=== PATIENT | female | born 2000 | race Caucasian/White ===

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

== ENCOUNTER → 2018-01-06 11:55 | Outpatient (CLI) | payer MEDICAID, SELFPAY ==
[2018-01-06 12:11] LABS: Hematocrit 40.6 % (37-47); Hemoglobin 14.2 g/dl (12.0-15.0); Mean Corpuscular Hgb 29.8 pg (27.0-32.0); Mean Corpuscular Volume 85.1 fL (81-99); Mean Platelet Vol. 13.3 fl (6.2-12.0); Platelet Count 180 K/mm3 (150-450); RBC Distribution Width CV 14.7 % (11.6-14.6); RBC Distribution Width SD 44.9 fl (35.1-43.9); Red Blood Count 4.77 M/mm3 (4.2-5.4); White Blood Count 10.8 K/mm3 (4.4-11.0)
[2018-01-06 12:20] LABS: Scan Indicated on CBC? Y/N NO
[2018-01-06 12:22] LABS: International Normalized Ratio 0.9
[2018-01-06 12:23] LABS: Partial Thromboplast Time 28.1 Seconds (24.1-36.2)
[2018-01-06 12:44] LABS: AST(SGOT) 13 U/L (15-37); Alanine Aminotransfer ALT/SGPT 12 U/L (13-56); Creatinine, Serum 0.61 mg/dL (0.55-1.02); EST Glomerular Filtration Rate 134 mL/min (>60); Est Glom Filt Rate - Afr Amer 162 mL/min (>60); Uric Acid 5.1 mg/dL (2.6-6.0)
== END ==
PROVIDERS: Visit Provider Obstetrics & Gynecology
DX: O13.9 Gestational [pregnancy-induced] hypertension without significant proteinuria, unspecified trimester (principal); Z3A.00 Weeks of gestation of pregnancy not specified
CPT/HCPCS: 36415; 82565; 84450; 84460; 84550; 85027; 85610; 85730

== ENCOUNTER → 2018-01-07 19:47 | Outpatient (CLI) | payer MEDICAID, SELFPAY ==
[2018-01-07 20:06] LABS: 24 Hour Urine Protein 493.5 mg/24HR (<150 MG/24HR); 24HR. UA Prot. Total Volume 1750 mL; Urine Protein (24 Hour) 28.2 mg/dL (<11.9)
== END ==
PROVIDERS: Visit Provider Obstetrics & Gynecology
DX: O13.9 Gestational [pregnancy-induced] hypertension without significant proteinuria, unspecified trimester (principal); Z3A.00 Weeks of gestation of pregnancy not specified
CPT/HCPCS: 84156

== ENCOUNTER 2018-01-10 06:48 | Inpatient (IN) | payer MEDICAID, SELFPAY ==
[2018-01-10 08:17] LABS: Hematocrit 38.8 % (37-47); Hemoglobin 13.2 g/dl (12.0-15.0); Mean Corpuscular Hgb 29.3 pg (27.0-32.0); Mean Corpuscular Volume 86.2 fL (81-99); Mean Platelet Vol. 13.6 fl (6.2-12.0); Platelet Count 190 K/mm3 (150-450); RBC Distribution Width CV 14.6 % (11.6-14.6); RBC Distribution Width SD 45.6 fl (35.1-43.9); Scan Indicated on CBC? Y/N NO; White Blood Count 13.3 K/mm3 (4.4-11.0)
[2018-01-10 08:25] VITALS: BMI 37.0
[2018-01-10 08:47] LABS: ALB/GLOB Ratio 0.6 RATIO (0.9-2.4); AST(SGOT) 12 U/L (15-37); Alanine Aminotransfer ALT/SGPT 12 U/L (13-56); Albumin, Serum 2.6 g/dL (3.2-5.0); Alkaline Phosphatase 130 U/L (45-117); Anion Gap 12 (5-15); BUN 11 mg/dL (7-18); BUN/Creat Ratio 19.1 RATIO (10-20); Calcium,Total 8.4 mg/dL (8.5-10.1); Chloride 107 mmol/L (98-107); Creatinine, Serum 0.58 mg/dL (0.55-1.02); EST Glomerular Filtration Rate 143 mL/min (>60); Est Glom Filt Rate - Afr Amer 173 mL/min (>60); Estimated Creatinine Clearance 129.06 ml/min; Globulin 4.2 g/dL (2.2-4.2); Glucose 126 mg/dL (74-106); Potassium 3.5 mmol/L (3.5-5.1); Protein, Total 6.8 g/dL (6.4-8.2); Sodium Level 138 mmol/L (136-145); Uric Acid 4.9 mg/dL (2.6-6.0)
[2018-01-10] MEDS: Lactated Ringers 1,000 ML 50 ML IV (08:53)
[2018-01-10] MEDS: miSOPROStol 25 MCG TABLET PO ×4 (09:08→21:35)
[2018-01-10 09:22] LABS: Bedside Glucose 109 mg/dL (70-110)
[2018-01-10 09:22] LABS: Bedside Glucose 122 mg/dL (70-110)
[2018-01-10 10:15] LABS: Bedside Glucose 90 mg/dL (70-110)
[2018-01-10] MEDS: Mag Hydrox/Al Hydrox/Simeth 30 ML UDC PO (10:29)
[2018-01-10 11:33] LABS: Protein, Urine (Random) 54.1 mg/dL (<11.9); Protein:Creat Ratio 361 mg/g CRE (0-200)
[2018-01-10 15:00] LABS: Bedside Glucose 75 mg/dL (70-110)
--- NOTE | 2018-01-10 16:54 | NURSING ---
Pt and family asking if after delivery if they would be allowed to use pre mixed formula supplied to them by [facility] d/t not wanting to expose baby to two different formulas here. This RN spoke with Dr Huynh and per MD medina with pt using the formula as long as it is pre mixed.
--- NOTE | 2018-01-10 17:45 | PCM.PN.BLA ---
Progress Note LABOR PROGRESS NOTE Relates contractions are mostly mild. She does not feel some of them. Denies headache, vision changes, shortness of breath or right upper quadrant/upper abdominal pain. AVSS GEN - NAD, AAO x 3 FHR 130, moderate variability, + accelerations, no decelerations. Patient now sitting up eating with some loss of contact. TOCO 4/10 min SVE ft/40/-3 per RN exam x 2 A/P: 17yo G1 @ 39 1/7wga with preeclampsia without severe features for IOL, Cat I FHR -s/p cytotec x 3 -No si/sx worsening preeclampsia, BPs normalized on bedrest -Will plan for bishop bulb placement once cervix 1cm dilation. Reviewed plan with patient. - and maternal statuses overall reassuring
[2018-01-10 18:46] LABS: Bedside Glucose 83 mg/dL (70-110)
--- NOTE | 2018-01-10 20:37 | PCM.PN.BLA ---
Progress Note EFM reviewed remotely. Baseline 130, moderate variability, + accelerations, no decelerations. Contractions 4/10 min. Cat I FHR.
[2018-01-10 23:16] LABS: Bedside Glucose 102 mg/dL (70-110)
[2018-01-11] VITALS (20 sets, daily range): BP systolic 116–147; BP diastolic 59–87; PULSE 67–98; RESP 14–18; TEMP 36.3–37.2; O2SAT 96–100
[2018-01-11] MEDS: miSOPROStol 25 MCG TABLET PO ×2 (01:35→07:12)
--- NOTE | 2018-01-11 01:40 | PCM.PN.BLA ---
Progress Note LABOR PROGRESS NOTE Denies headaches, vision changes or abdominal pain. AVSS GEN - NAD, AAO x 3 FHR 130, moderate variability, + accelerations, no decelerations TOCO 2/10 min SVE ft/50/-4 A/P: 17yo G1 @ 39 2/7wga, IOL for preeclampsia without severe features, Cat I FHR -Misoprostol #5 placed per vagina -Will continue induction of labor -Maternal and statuses reassuring
[2018-01-11 05:20] LABS: Bedside Glucose 85 mg/dL (70-110)
[2018-01-11 06:50] LABS: Bedside Glucose 88 mg/dL (70-110)
--- NOTE | 2018-01-11 08:03 | PCM.PN.BLA ---
Progress Note LABOR PROGRESS NOTE No complaints this morning. No issues overnight. AVSS GEN - NAD, AAO x 3 ABD - soft, NT/ND, gravid FHR 130, moderate variability, + accelerations, no decelerations TOCO - not picking up contractions SVE - per RN exam unchanged A/P: 17yo G1 @ 39 2/7wga with preeclampsia without severe features, Cat I FHR -Cytotec #6 administered at 0700h -Repeat exam at 1100h. -Maternal and statuses reassuring
[2018-01-11] MEDS: 0.9% Saline Lock 10 ML Syringe IV (09:04)
[2018-01-11 11:10] LABS: Bedside Glucose 86 mg/dL (70-110)
--- NOTE | 2018-01-11 11:42 | PCM.PN.OB ---
Subjective: Comfortable. No complaints. No headache or blurry vision. Objective: BPs 130-140/80-90s. HR normal FHR tracing Cat 1. - Physical Exam General: Alert, Oriented x3, Cooperative, No apparent distress Lungs: Clear to auscultation, Normal air movement Cardiovascular: Regular rate, Regular Rhythm Abdomen: Soft, Non Tender, Non-Distended, Gravid, Appropriate for Gestational Age Extremities: No edema Skin: No rashes Neurological: Neuro grossly intact Psych/Mental Status: Normal Affect Comment: Cervix closed with external os finger tip Weight: 209 lb Body Mass Index (BMI) 37.0 Intake and Output for Last 24 Hours 01/09/18 01/10/18 01/11/18 23:59 23:59 23:59 Output Total 250 / 250 Balance -250 / -250 POC Glucose 01/11/18 01/11/18 01/11/18 11:05 06:44 03:06 POC Glucose 86 88 85 01/10/18 01/10/18 01/10/18 23:02 18:42 14:52 POC Glucose 102 83 75 Assessment/Plan Marya was admitted for induction of labor secondary to preeclampsia without severe features. Cervix was unfavorable. She has been given 4 doses of cytotec vaginally with no appreciable change in her cervical exam. I am unsure if I could get a bishop balloon catheter past her internal os. I discussed with Marya her options which include trying pitocin, trying an attempt at bishop balloon placement or proceeding to delivery. Risks of C/S discussed including risks of bleeding, infection, damage to adjacent organs. Also discussed slightly better outcomes with vaginal delivery. Options for subsequent deliveries also discussed. She understands that recovery time will likely be longer with delivery. She would prefer delivery over continued trial of induction. Procedures explained, consents signed.
[2018-01-11] MEDS: Lactated Ringers 1,000 ML 999 ML IV (12:00)
[2018-01-11] MEDS: Clindamycin 900 MG/50 ML BAG 75 MG IV (12:31)
[2018-01-11] MEDS: Sodium Citrate/Citric Acid 30 ML UDC PO (12:31)
[2018-01-11] MEDS: Lactated Ringers 1,000 ML 100 ML IV ×2 (13:00→19:01)
[2018-01-11] MEDS: Oxytocin 30 units/NS 500 ml 30 UNITS/500 ML IV.SOLN 167 UNITS IV (13:07)
--- NOTE | 2018-01-11 13:29 | PCM.OB.CSR ---
- Problem List (1) Pre-eclampsia affecting childbirth Status: Acute (2) Failed induction of labor, delivered Status: Chronic Delivery Classification: BARBIE Final EARLINE: 01/17/18 Final EARLINE Source: US <20 weeks Gestational age: 39 Weeks and 1 Days Indications for : Failed Induction Description of Procedure: Examined after 4 doses of cytotec given vaginally with no change in cervical exam with closed internal os. Delivery of a live male weighing 7lb 8oz. Apgars 8/9. Amniotic fluid clear. Normal appearing uterus, ovaries and fallopian tubes. Amniotic Membrane Rupture Type: Artificial Amniotic Fluid Description: Clear Placenta Disposition: [facility] Drain: Heart to straight drain Fluids Replaced: 1500cc Cord Entanglement: None Nuchal Cord Compression: Without compression Cord Vessel Description: 3 Vessels Esitmated Blood Loss (ml): 600cc Gender: Male (1 minute): 8 (5 minute): 9 Delayed cord clamping: Yes Pre-op Antibiotic Given: Clindamycin 600mg IV x1 and Gentamicin 1.5mg/kg IV x1 Pt instructed on risks of surgery: Bleeding, Infection, Need for Future C-Sections, Injury to surrounding structure(s) including bowel and bladder Complications: None - Admit VTE Documentation VTE Present on Admission: No VTE Mechan Device Prophylaxis: SCD's VTE Pharm Prophylaxis ordered?: No
--- NOTE | 2018-01-11 13:33 | OP.PCM_ITS ---
- Problem List (1) Pre-eclampsia affecting childbirth Status: Acute (2) Failed induction of labor, delivered Status: Chronic Delivery Classification: BARBIE Final EARLINE: 01/17/18 Final EARLINE Source: US <20 weeks Gestational age: 39 Weeks and 1 Days Indications for : Failed Induction Description of Procedure: Examined after 4 doses of cytotec given vaginally with no change in cervical exam with closed internal os. Delivery of a live male weighing 7lb 8oz. Apgars 8/9. Amniotic fluid clear. Normal appearing uterus, ovaries and fallopian tubes. Amniotic Membrane Rupture Type: Artificial Amniotic Fluid Description: Clear Placenta Disposition: [facility] Drain: Heart to straight drain Fluids Replaced: 1500cc Cord Entanglement: None Nuchal Cord Compression: Without compression Cord Vessel Description: 3 Vessels Esitmated Blood Loss (ml): 600cc Gender: Male (1 minute): 8 (5 minute): 9 Delayed cord clamping: Yes Pre-op Antibiotic Given: Clindamycin 600mg IV x1 and Gentamicin 1.5mg/kg IV x1 Pt instructed on risks of surgery: Bleeding, Infection, Need for Future C- Sections, Injury to surrounding structure(s) including bowel and bladder Complications: None - Admit VTE Documentation VTE Present on Admission: No VTE Mechan Device Prophylaxis: SCD's VTE Pharm Prophylaxis ordered?: No
--- NOTE | 2018-01-11 13:35 | DCINST_ITS ---
Discharge Diet: No Restrictions Discharge Activity: Return to Normal Activity, May Not Drive, May not drive while taking narcotic pain medications., May Shower Return to work on:: 03/13/18 May shower in (days): 0 May resume sexual activity in: 4-6 weeks Call your doctor if your incision/area has: Continuous Slow Oozing, Sudden Increased Bleeding, Increased Pain/ Swelling, Increased Redness, Foul Smelling Discharge, Swelling at the incision site Call your doctor if you observe: Fever of 101 or Higher, Inability to urinate, Inability to have a bowel movement, Using more than one pad per hour, Shortness of breath, Chest pain, Calf discomfort, Uncontrolled pain Remove Dressing in (days):: 2 Cleanse incision/area with: Soap & Water Additional Instructions: If you experience any of the following, contact your healthcare provider. * Bleeding that soaks a pad every hour for 2 hours * Fever 100.4 or higher * Unrelieved incision or abdominal pain * Swelling, redness, discharge or bleeding from your incision or episiotomy site * Your incision begins to separate * Problems urinating (including inability to urinate or burning while urinating) . * Visual changes * Severe headache * Flu-like symptoms * Pain or redness in one of both of your breasts * Pain, warmth, tenderness or swelling in your legs, especially the calf area * Frequent nausea and vomiting * Symptoms of depression or anxiety If you experience any of the following, call 911 or go to the nearest Emergency Room. * Chest pain * Problems breathing * Seizure activity * Partial or complete paralysis of a body part, slurred speech, weakness or drooping of the face, or a sudden inability to walk or hold your balance Allergies/Adverse Reactions: Allergies amoxicillin [From Trimox] Allergy (Verified 01/10/18 08:36) Hives Medications to take at Discharge Ibuprofen [Motrin] 800 mg PO TID PRN PRN #30 tab 01/11/18 Oxycodone [Oxyir] 5 - 10 mg PO Q4H PRN PRN 7 Days #30 tab 01/11/18 The following prescriptions were given: Oxycodone [Oxyir] 5 - 10 mg PO Q4H PRN PRN 7 Days #30 tab PRN Reason: Mod-Severe Pain () Ibuprofen [Motrin] 800 mg PO TID PRN PRN #30 tab PRN Reason: pain or cramping Follow-Up: Call to make an appointment with your doctor for an incision check in 1-2 weeks. You will also need a 6 week post- follow up appointment. Please Follow Up With: Marine Robledo MD When: 1-2 weeks Primary Care Physician: Care Physician,No Primary [Primary Care Provider] - Proposed Discharge Date: 01/14/18
[2018-01-11 14:41] LABS: Bedside Glucose 85 mg/dL (70-110)
--- NOTE | 2018-01-11 18:25 | OP.PCM_ITS ---
Problem List (1) Pre-eclampsia affecting childbirth Status: Acute (2) Failed induction of labor, delivered Status: Chronic Report of Operation Date of Procedure: 01/11/18 Pre-Operative Diagnosis: preeclampsia, failed induction Post-Operative Diagnosis: same Surgery/Procedure Performed:: Primary Low Transverse Section Description of Surgical Findings:: Normal appearing uterus, ovaries, and fallopian tubes. Live male fetus in vertex presentation located very high in pelvis. Not engaged. Apgars were 8/ 9. weight 7lb8oz. amusement machine mechanic: Gunner Nicholas Type of Anesthesia:: Spinal Anesthesiologist: Luke Lopez Special Medications: none Specimen's removed: cord blood Drains: bishop Estimated Blood Loss (mL): 600cc Fluids Replaced: 1500cc Description of Procedure: Indications and risks of the planned delivery were discussed in detail. She was then taken to the OR with IV running. She was given clindamycin and gentamicin as surgical prophylaxis. Spinal anesthesia was introduced without complication. She was then prepped and draped in the supine position with a leftward tilt. A bishop catheter was placed. Once anesthesia was found to be adequate a Pfannensteil incision was made in the skin approximately 2cm above the symphysis pubis. The underlying subcutaneous tissue was dissected with sharp and blunt dissection to the level of fascia. The fascia was then incised in midline and this incision was extended bilaterally using the Palma scissors. The upper portion of the fascial defect was grasped with two Elliot clamps, elevated, and the underlying rectus muscles dissected off with sharp dissection. In a similar manner the rectus muscles were dissected off the lower fascial defect. The rectus muscles were then in the midline, the peritoneum identified and entered sharply. The peritoneal defect was enlarged using blunt retraction. A bladder blade was then placed. The vesicouterine peritoneum was then incised and extended bilaterally and a bladder flap was created digitally. The bladder blade was then replaced. A transverse incision was then made with the scalpel in the lower uterine segment exposing the membranes. This was ruptured and the uterine defect was extended bilaterally using blunt lateral and superior traction. The bladder blade was removed. The baby's head was delivered atraumatically followed by the body. Delayed cord clamping was employed. The Baby had an active cry shortly after delivery. The nose and mouth were suctioned. The cord was then clamped and cut and the baby handed to the waiting nursing staff for evaluation. The placenta was then delivered manually , the uterus exteriorized, and then cleared of all clot and membranes. The uterine defect was then repaired in two layers using #1 Vicryl suture. The posterior cul de sac and lateral gutters were cleared of all clot and fluid. The uterus was returned to the abdomen. The uterine incision was inspected and found to be hemostatic. The peritoneum was then closed with a running stitch of 2-0 Vicryl. The rectus muscles were reapproximated using interrupted sutures of 0-Vicryl. The fascia was closed with #1 Stratofix suture. The subcutaneous tissue was closed with 2-0 Vicryl. The skin was closed with a subcuticular stitch of 4-0 Monocryl. Sponge, lap, and needle counts were correct. She was taken to the recovery room in stable condition. - Complications none - Admit VTE Documentation VTE Present on Admission: No VTE Mechan Device Prophylaxis: SCD's VTE Pharm Prophylaxis ordered?: No
[2018-01-11] MEDS: Ketorolac 30 MG/ML Syringe IV (18:52)
[2018-01-12] VITALS (10 sets, daily range): BP systolic 106–145; BP diastolic 63–90; PULSE 72–103; RESP 16–20; TEMP 36.6–37.2; O2SAT 95–100
[2018-01-12] MEDS: Ketorolac 30 MG/ML Syringe IV ×5 (00:20→23:48)
[2018-01-12] MEDS: Lactated Ringers 1,000 ML 100 ML IV (04:07)
[2018-01-12 06:21] LABS: Hematocrit 31.9 % (37-47); Hemoglobin 10.9 g/dl (12.0-15.0); Mean Corp Hgb Conc 34.2 g/gl (32-36); Mean Corpuscular Hgb 29.9 pg (27.0-32.0); Mean Corpuscular Volume 87.4 fL (81-99); Mean Platelet Vol. 12.8 fl (6.2-12.0); Platelet Count 125 K/mm3 (150-450); RBC Distribution Width CV 14.5 % (11.6-14.6); RBC Distribution Width SD 45.1 fl (35.1-43.9); Red Blood Count 3.65 M/mm3 (4.2-5.4); White Blood Count 10.2 K/mm3 (4.4-11.0)
[2018-01-12 06:24] LABS: Scan Indicated on CBC? Y/N NO
--- NOTE | 2018-01-12 08:14 | PCM.PN.OB ---
Patient Problems: Active and Suspected Problems Pre-eclampsia affecting childbirth (Acute) Subjective: More comfortable this morning. Bleeding light. Bottle feeding. Objective: Afeb VSS Hgb appropriate - Physical Exam General: Alert, Oriented x3, Cooperative, No apparent distress Lungs: Clear to auscultation, Normal air movement Cardiovascular: Regular rate, Regular Rhythm Abdomen: Soft, Non Tender, Non-Distended, - - Fundus firm. Incision dressing dry. Extremities: No edema Vital Signs Temp Pulse Resp BP Pulse Ox 97.8 F 72 16 125/90 H 97 01/12/18 04:04 01/12/18 05:52 01/12/18 05:52 01/12/18 04:04 01/12/18 05:52 Oxygen Delivery Method Room Air Weight: 209 lb Body Mass Index (BMI) 37.0 Intake and Output for Last 24 Hours 01/10/18 01/11/18 01/12/18 23:59 23:59 23:59 Intake Total 3424 / 3424 1500 / 1500 Output Total 250 / 250 950 / 950 550 / 550 Balance -250 / -250 2474 / 2474 950 / 950 Laboratory Tests Past 24 Hrs 01/12/18 05:58 WBC 10.2 RBC 3.65 L Hgb 10.9 L Hct 31.9 L MCV 87.4 MCH 29.9 MCHC 34.2 RDW 14.5 RDW Differential 45.1 H Plt Count 125 L MPV 12.8 H POC Glucose 01/11/18 01/11/18 14:32 11:05 POC Glucose 85 86 Assessment/Plan Active and Suspected Problems Pre-eclampsia affecting childbirth (Acute) Doing well on POD#1. Continue routine PO care. Remove bishop catheter around noon today. PO narcotics then.
[2018-01-12] MEDS: 0.9% Saline Lock 10 ML Syringe IV ×3 (13:16→23:48)
[2018-01-12] MEDS: oxyCODONE 5 MG Tablet PO (14:02)
[2018-01-12] MEDS: Senna/Docusate Sodium 1 Tablet PO (23:48)
[2018-01-13 02:24] VITALS: BP 123/59; PULSE 80; RESP 16; TEMP 36.7; O2SAT 98
[2018-01-13] MEDS: Senna/Docusate Sodium 1 Tablet PO (07:55)
[2018-01-13] MEDS: Ibuprofen 600 MG Tablet PO (07:56)
[2018-01-13 08:10] VITALS: BP 137/76; PULSE 88; RESP 16; TEMP 36.5; O2SAT 97
--- NOTE | 2018-01-13 08:20 | PCM.PN.OB ---
Patient Problems: Active and Suspected Problems Pre-eclampsia affecting childbirth (Acute) Subjective: No complaints. Pain well controlled with PO medications. Tolerating PO well. Voiding. Bleeding light. Objective: Afeb VSS - Physical Exam General: Alert, Oriented x3, Cooperative, No apparent distress Lungs: Clear to auscultation, Normal air movement Cardiovascular: Regular rate, Regular Rhythm Abdomen: Soft, Non Tender, Non-Distended, - - Incision dressing dry. No erythema Extremities: No edema, No Calf Tenderness Skin: No rashes Neurological: Neuro grossly intact Psych/Mental Status: Normal Affect Vital Signs Temp Pulse Resp BP Pulse Ox 97.7 F L 88 16 137/76 H 97 01/13/18 08:10 01/13/18 08:10 01/13/18 08:10 01/13/18 08:10 01/13/18 08:10 Oxygen Delivery Method Room Air Weight: 209 lb Body Mass Index (BMI) 37.0 Intake and Output for Last 24 Hours 03//18 /15/18 // 23:59 23:59 23:59 Intake Total 3424 / 3424 3024 / 3024 Output Total 950 / 950 2049 / 2049 Balance 2474 / 2474 974 / 974 Assessment/Plan Active and Suspected Problems Pre-eclampsia affecting childbirth (Acute) Doing well on POD#2. Cleared for discharge home today. Home going instructions and warnings given.
--- NOTE | 2018-01-13 08:22 | PCM.DC.SUM ---
Discharge Date and Diagnosis - Problem List Patient Problems: Active and Suspected Problems Pre-eclampsia affecting childbirth (Acute) Date of Admission: 01/10/18 Date of Discharge: 01/13/18 - Primary Discharge Diagnosis Active and Suspected Problems Pre-eclampsia affecting childbirth (Acute) s/p primary C/S - Secondary Discharge Diagnosis Chronic Problems Failed induction of labor, delivered (Chronic) Hospital Course and Treatment Consultations 01/10/18 07:02 Consult: Anesthesia Routine Comment: Reason For Exam: labor Operations: - - Primary C/S Procedures: - - cytotec induction Summary of Care Provided: The patient is a 17 year old F [admitted for induction of labor secondary to preeclampsia. Cytotec induction was performed with no cervical interchange agent 24+ hours. Primary C/S was performed without complication with delivery of a live male . Postoperative course unremarkable. Discharged home on POD#2] Discharge Diet: No Restrictions Discharge Activity: Return to Normal Activity, May Not Drive, May not drive while taking narcotic pain medications., May Shower Return to work on:: 03/13/18 May shower in (days): 0 May resume sexual activity in: 4-6 weeks Call your doctor if your incision/area has: Continuous Slow Oozing, Sudden Increased Bleeding, Increased Pain/ Swelling, Increased Redness, Foul Smelling Discharge, Swelling at the incision site Call your doctor if you observe: Fever of 101 or Higher, Inability to urinate, Inability to have a bowel movement, Using more than one pad per hour, Shortness of breath, Chest pain, Calf discomfort, Uncontrolled pain Remove Dressing in (days):: 2 Cleanse incision/area with: Soap & Water Home Medications: Medications to take at Discharge Ibuprofen [Motrin] 800 mg PO TID PRN PRN #30 tab 01/11/18 Oxycodone [Oxyir] 5 - 10 mg PO Q4H PRN PRN 7 Days #30 tab 01/11/18 Following Prescrptions Were Given to Patient: Oxycodone [Oxyir] 5 - 10 mg PO Q4H PRN PRN 7 Days #30 tab PRN Reason: Mod-Severe Pain (4-10/10) Ibuprofen [Motrin] 800 mg PO TID PRN PRN #30 tab PRN Reason: pain or cramping Primary Care Physician: Care Physician,No Primary [Primary Care Provider] - Please Follow Up With: Marine Robledo MD When: 1-2 weeks Disposition: Home Minutes spent on discharge:: 15 Patient Condition:: Good Meaningful Use Info Meaningful Use Diagnoses (Choose all that apply): None applicable
--- NOTE | 2018-01-13 09:36 | NURSING ---
Wheezes clear with cough. Mother encouraged to use incentive spirometer. Mother has had cold but getting better.
[2018-01-13 12:24] VITALS: BP 148/78; PULSE 78; RESP 18; TEMP 36.6; O2SAT 98
== END 2018-01-13 13:20 | disposition home or self-care (01) | DRG 371 ==
PROVIDERS: Obstetrics & Gynecology; Admitting Provider Obstetrics & Gynecology; Visit Provider Obstetrics & Gynecology
DX: O61.0 Failed medical induction of labor (principal); O24.429 Gestational diabetes mellitus in childbirth, unspecified control; O14.94 Unspecified pre-eclampsia, complicating childbirth; O99.334 Smoking (tobacco) complicating childbirth; Z37.0 Single live birth; Z3A.39 39 weeks gestation of pregnancy
CPT/HCPCS: 59025; 59050; 80053; 82570; 82962; 84156; 84550; 85027; 86850; 86900; 99218; J7050; J7120; A4216; G0378

== ENCOUNTER → 2019-05-02 13:27 | Outpatient (CLI) | payer MEDICAID, SELFPAY ==
[2019-05-02 17:55] LABS: Chlamydia Trachomatis by PCR Negative (Negative); Neisserai gonorrhoeae by PCR Negative (Negative); Probe Check PASS; Sample Adequacy Control PASS; Specimen Processing Control PASS
== END ==
PROVIDERS: Visit Provider Obstetrics & Gynecology
DX: Z11.3 Encounter for screening for infections with a predominantly sexual mode of transmission (principal); Z32.01 Encounter for pregnancy test, result positive
CPT/HCPCS: 87491; 87591

== ENCOUNTER → 2019-05-10 14:05 | Outpatient (CLI) | payer MEDICAID, SELFPAY ==
[2019-05-10 15:51] LABS: Color, Urine Yellow (Yellow); Glucose, Dipstick Normal (Normal); Ketone-Dipstick 50 mg/dl (Negative); Leukocyte Esterase-Dipstick 100 /ul (Negative); Nitrite-Dipstick Negative (Negative); Occult Blood-Urine 10 /ul (Negative); Protein-Dipstick 15 mg/dl (Negative); Specific Gravity, Urine 1.025 (1.002-1.030); Urine Bilirubin Dipstick Negative (Negative); Urine Clarity Sl. Cloudy (Clear); Urine Urobilinogen 1 mg/dl (Normal)
[2019-05-10 15:52] LABS: Absolute Lymphocyte Count 2.16 X10^3/ul (0.83-4.51); Absolute Neutrophil Count 6.8 X10^3/uL (2.0-7.7); Basophil# 0.01 X10^3/uL; Basophil% 0.1 % (0-1); Hematocrit 39.1 % (37-47); Hemoglobin 13.4 g/dl (12.0-15.0); Lymphocyte # 2.16 X10^3/ul (4.0); Lymphocyte % 22.1 % (19-41); Mean Corp Hgb Conc 34.3 g/gl (32-36); Mean Corpuscular Hgb 29.4 pg (27.0-32.0); Mean Corpuscular Volume 85.7 fL (81-99); Monocyte# 0.68 X10^3/uL; Neutrophil # 6.81 X10^3/uL (2.7-7.7); Neutrophil % 69.6 % (47-70); Platelet Count 205 K/mm3 (150-450); RBC Distribution Width CV 13.2 % (11.6-14.6); RBC Distribution Width SD 41.6 fl (35.1-43.9); Red Blood Count 4.56 M/mm3 (4.2-5.4); White Blood Count 9.8 K/mm3 (4.4-11.0)
[2019-05-10 16:00] LABS: Amphetamine Urine VISTA NEGATIVE (<1000 ng/mL); Barbiturate Urine VISTA NEGATIVE (< 200 ng/mL); Benzodiazepine Urine VISTA NEGATIVE (< 200 ng/mL); Cocaine Urine VISTA NEGATIVE (< 300 ng/mL); Ecstacy Urine VISTA NEGATIVE (< 500 ng/mL); Methadone Urine VISTA NEGATIVE (< 300 ng/mL); PCP Urine VISTA NEGATIVE (< 25 ng/mL); THC Urine VISTA NEGATIVE (< 50 ng/mL); Vista UDS pH Range 6
[2019-05-10 16:10] LABS: Thyroid Stim Hormone (TSH) 2.21 uIU/mL (0.358-3.74)
[2019-05-10 16:11] LABS: POSITIVE COUNT NO; POSITIVE DIFFERENTIAL NO; POSITIVE MORPHOLOGY NO
[2019-05-11 02:58] LABS: Prenatal RPR NONREACTIVE (NONREACTIVE)
[2019-05-11 09:25] LABS: HIV - WCH Non-Reactive (Nonreactive); Hepatitis B Surface Antigen Non-Reactive (Nonreactive); Hepatitis C Antibody Non-Reactive (Nonreactive); Rubella IgG 420.3 IU/mL
== END ==
PROVIDERS: Visit Provider Obstetrics & Gynecology
DX: Z34.82 Encounter for supervision of other normal pregnancy, second trimester (principal)
CPT/HCPCS: 36415; 80307; 81002; 84443; 85025; 86703; 86762; 86803; 87340

== ENCOUNTER → 2019-07-20 10:39 | Outpatient (CLI) | payer MEDICAID, SELFPAY ==
[2019-07-20 14:03] LABS: Glucose Challenge Gest 1H 50g 133 mg/dL (70-140)
[2019-07-20 14:18] LABS: Hematocrit 37.9 % (37-47); Hemoglobin 12.8 g/dL (12.0-15.0); Mean Corp Hgb Conc 33.8 g/dL (32-36); Mean Corpuscular Hgb 29.9 pg (27.0-32.0); Mean Corpuscular Volume 88.6 fL (81-99); Mean Platelet Vol. 13.1 fl (6.2-12.0); Platelet Count 181 K/mm3 (150-450); RBC Distribution Width CV 13.1 % (11.6-14.6); RBC Distribution Width SD 42.5 fl (35.1-43.9); Red Blood Count 4.28 M/mm3 (4.2-5.4); White Blood Count 9.4 K/mm3 (4.4-11.0)
== END ==
PROVIDERS: Visit Provider Obstetrics & Gynecology
DX: Z34.83 Encounter for supervision of other normal pregnancy, third trimester (principal)
CPT/HCPCS: 36415; 82950; 85027

== ENCOUNTER 2019-08-20 21:00 | Outpatient (CLI) | payer MEDICAID, SELFPAY ==
[2019-08-20 21:31] VITALS: BMI 33.0
[2019-08-20] MEDS: Acetaminophen 500 MG Tablet 1000 MG PO (21:54)
[2019-08-20 22:07] LABS: Color, Urine Yellow (Yellow); Glucose, Dipstick Normal (Normal); Ketone-Dipstick 5 mg/dl (Negative); Leukocyte Esterase-Dipstick Negative /ul (Negative); Nitrite-Dipstick Negative (Negative); Occult Blood-Urine Negative /ul (Negative); Protein-Dipstick Negative (Negative); Specific Gravity, Urine 1.025 (1.002-1.030); Urine Bilirubin Dipstick Negative (Negative); Urine Clarity Clear (Clear); Urine Urobilinogen Normal (Normal)
[2019-08-20 22:47] VITALS: RESP 18
--- NOTE | 2019-09-12 18:38 | OB.TRI.NOTE ---
History of Present Illness Date of Service: 08/20/19 Was patient seen by the physician?: No Reason For Visit: RLQ Pain Date of Service: 08/20/19 Final EARLINE: 10/07/19 Final EARLINE Source: US <20 weeks Gestational age: 33 Weeks and 1 Days History of Present Illness: 33+ week intrauterine presents with discomfort in her right lower quadrant. Primarily occurs whenever she moves. Has not tried medication at home. Allergies amoxicillin [From Trimox] Allergy (Verified 08/20/19 21:30) Hives Laboratory Studies: Laboratory Tests 08/20/19 Range/Units 21:05 Urine Color Yellow (Yellow) Urine Clarity Clear (Clear) Urine pH 5.0 (5.0 - 8.0) Ur Specific [place] 1.025 (1.002-1.030) Urine Protein Negative (Negative) mg/dl Urine Glucose (UA) Normal (Normal) mg/dl Urine Ketones 5 H (Negative) mg/dl Urine Occult Blood Negative (Negative) /ul Urine Nitrite Negative (Negative) Urine Bilirubin Negative (Negative) mg/dL Urine Urobilinogen Normal (Normal) mg/dl Ur Leukocyte Esterase Negative (Negative) /ul Physical Exam Vitals: Vital Signs Resp 18 08/20/19 22:47 NST - FHR Rate Baby A NST Reactive:: Yes FHR Category:: Category I Impression/Plan 33+ week intrauterine with right lower quadrant discomfort consistent with round ligament pain. Recommended Tylenol at home to help with discomfort. Reactive nonstress test and urine analysis negative. Call with sudden gush/continuous leak of fluid, vaginal bleeding, regular or uncomfortable contractions, decreased movement [less than 10 movements in 2 hours].
== END 2019-08-20 22:47 | disposition home or self-care (01) ==
LOC: WPOUT 21:17 → WP 21:17
PROVIDERS: Referring Provider Obstetrics & Gynecology; Visit Provider Obstetrics & Gynecology
DX: O26.893 Other specified pregnancy related conditions, third trimester (principal); R10.31 Right lower quadrant pain; Z88.0 Allergy status to penicillin; Z3A.33 33 weeks gestation of pregnancy
CPT/HCPCS: 59025; 59050; 81002; 87086; 87088; 99218; G0378

== ENCOUNTER 2019-10-01 05:27 | Inpatient (IN) | payer MEDICAID, SELFPAY ==
[2019-10-01] VITALS (22 sets, daily range): BP systolic 95–141; BP diastolic 44–88; PULSE 68–97; RESP 16–20; TEMP 36.2–36.7; O2SAT 96–100; BMI 35.2
[2019-10-01] MEDS: Lactated Ringers 1,000 ML 999 ML IV (05:50)
[2019-10-01 06:23] LABS: Absolute Lymphocyte Count 3.23 X10^3/uL (0.83-4.51); Absolute Neutrophil Count 8.4 X10^3/uL (2.0-7.7); Basophil# 0.03 X10^3/uL; Basophil% 0.2 % (0-1); Eosinophil# 0.15 X10^3/uL; Eosinophils% 1.2 % (0-5); Hematocrit 37.8 % (37-47); Hemoglobin 12.9 g/dL (12.0-15.0); Lymphocyte # 3.23 X10^3/ul (4.0); Lymphocyte % 25.5 % (19-41); Mean Corp Hgb Conc 34.1 g/dL (32-36); Mean Corpuscular Hgb 28.9 pg (27.0-32.0); Mean Corpuscular Volume 84.6 fL (81-99); Mean Platelet Vol. 13.9 fl (6.2-12.0); Monocyte# 0.82 X10^3/uL; Monocyte% 6.5 % (0-10); NRBC Flagged by Analyzer 0 % (0-5); Neutrophil # 8.35 X10^3/uL (2.7-7.7); Platelet Count 177 K/mm3 (150-450); RBC Distribution Width CV 13.6 % (11.6-14.6); RBC Distribution Width SD 42.4 fl (35.1-43.9); Red Blood Count 4.47 M/mm3 (4.2-5.4); White Blood Count 12.7 K/mm3 (4.4-11.0)
[2019-10-01] MEDS: Lactated Ringers 1,000 ML 150 ML IV (06:56)
[2019-10-01] MEDS: Sodium Citrate/Citric Acid 30 ML UDC PO (06:56)
--- NOTE | 2019-10-01 07:11 | PCM.HPOB.BLA ---
History and Physical Date of Admission: 10/01/19 - Repeat C section OB HISTORY AND PHYSICAL EXAMINATION History of this : 19 yo female Ab0 with EDC 10/07/2019 by 12 weeks 1 day Ultrasound, presents to Labor and Delivery for planned repeat C section. Declined . care remarkable for - 1.) Prior C section. plans repeat c/section . pt elected FIRST C section after prolonged induction / FAILED INDUCTION, PIH, preeclampsia 2.) Short interval between pregnancies Prior delivery 01/11/18 3.) Quit smoking upon discovery of 4.) MSAFP and CF testing declined. . States her mother is a CF carrier 5.) PIH, preeclampsia with first 6.) GESTATIONAL DIABETES with her first . Pertinent Past Medical History: Breast/Ovarian/Colon Cancers - Maternal Grandmother had Breast Cancer approximately age 50-60 Infections - varicella vaccine Illnesses - none Accidents - 10-10-16 AA spine got twisted Doing ok now. History of Abnormal PAPS - No pap til 19. Hospitalizations - Childbirth and see surgery SURGICAL HISTORY: 1. 01/11/2018 Dr Maynor Marin MENSTRUAL HISTORY: LMP Known?- best guess Amount/Duration - 4-5 days, Regularity - Irregular, LMP - 12/31/18, Age Onset Menarche - 12 PAST PREGNANCIES: Total Pregnancies - 2; Full Term Pregnancies - 1; Premature - 0; Abortions, Induced - 0; Abortions, Spontaneous - 0; Ectopics - 0; Multiple Births - 0; Living Children - 1 FAMILY HISTORY: MaternalGrandparent - Carcinoma of breast; SOCIAL HISTORY: Alcohol Use - None Smoking - stopped smoking end February 2019 Diet - no particular diet Lifestyle - single Exercise - minimal Seat Belt Use - always Employer - [employer] [place] Job Description - works in [employer] Illicit Drug Use - Marijuana none since realizing Sexual Activity - single sexual partner Residence - lives w her family w FOB Place of - [place] Hours Worked - apprx 17 hrs / week Spouse-Sig Other Name - Amanda Lawrence Spouse-Sig Other Occupation - [employer] Spouse-Sig Other Phone No - [phone] Children Name(s) - Agustínzeden '18 (DS) Control - Allergies: Amoxicillin Medications: During - No Meds Review of Systems: Non-contributory PHYSICAL EXAMINATION General Appearance: 19 yo female in no acute distress Vital Signs: AF, VSS Lungs: Regular rate, rhythm Breasts: deferred Abdomen: gravid Cervix: deferred Presentation: cephalic Size: AGA Movement: present Heart: present Impression /Plan: Intrauterine . 39 wk EGA with hx of prior C section. Admitted for repeat C section. Meagan Robledo MD 10/01/19 0715
[2019-10-01] MEDS: Oxytocin 30 units/NS 500 ml 30 UNITS/500 ML IV.SOLN 167 UNITS IV (08:35)
--- NOTE | 2019-10-01 08:54 | OP.PCM_ITS ---
Delivery Classification: Scheduled Final EARLINE: 10/07/19 Final EARLINE Source: US <20 weeks Gestational age: 39 Weeks and 1 Days annealing torch operator: Nanda Jessica Type of Anesthesia:: Spinal - Florencia Dash MD Date of Procedure: 10/01/19 Pre-Operative Diagnosis: 39 1/7 wk prior C section , plans repeat C/S Declined Post-Operative Diagnosis: Same Indications for : Repeat Elective Description of Procedure: Findings: At amniotomy, clear fluid was noted. Pino viable male in vertex presentation. Apgars 9/9, Baby weight: 7# 0 oz There was a normal appearing uterus, fallopian tubes and ovaries bilaterally. There were minimal filmy adhesions between the bladder and lower uterine segment. PATH: Routine cord blood for typing collected. Narrative account: After the risks, benefits and alternatives of the procedure were reviewed with the patient, informed consent was obtained. The patient was taken to the Operating room with an IV running, and placed in a seated position on the operating table for placement of the spinal. Once the spinal had been administered, she was briefly frog-legged for Heart catheter placement, and then repositioned to dorsal supine position with leftward displacement of the uterus, and prepped and draped in the usual sterile fashion. Once the spinal was deemed adequate, a Pfannenstiel skin incision was created using the knife (through the prior skin incision scar). The incision was carried down to the rectus fascia using the knife. The fascia was nicked in the midline. The fascial incision was extended bilaterally using curved Palma scissors. The superior aspect of the fascial incision was grasped with Elliot clamps and tented up and the underlying rectus abdominal muscles were dissected free. In a similar manner, the inferior aspect of the facial incision was grasped with Elliot clamps tented up and the underlying rectus abdominal muscles were dissected free. The rectus abdominis muscles were in the midline and the peritoneum was identified and entered by blunt dissection high in the incision. The peritoneum was stretched laterally and a bladder blade was inserted. The uterine incision was then created using Metzenbaum scissors. The operators fingertips were used to extend the uterine incision by blunt dissection in a caudad- cephalad orientation . Clear fluid was noted at amniotomy. The vertex was then delivered atraumatically through the incision. The OP and nares were bulb suctioned on the abdomen. The shoulders delivered easily . The cord clamped x two and cut. And the was handed off to the nurse awaiting delivery after briefly showing him to his parents. The baby had a spontaneous, vigorous cry. The placenta was then delivered. The uterus was exteriorized and cleared of clots and debris . The uterine incision was repaired with 1 Vicryl in a running locked fashion. A second imbricating layer was then placed, using 1 Monocryl in running nonlocked fashion. Bovie cautery was used to treat any bleeding areas . Excellent hemostasis was noted. At this point the uterus was returned to the abdominal cavity. The gutters were cleared of clots and debris and the incision at the uterus was inspected. Excellent hemostasis was noted. The peritoneal edges and rectus abdominis muscles were reapproximated in the midline with vertical mattress stitches of 1 Vicryl. Excellent hemostasis was noted at the subfascial space. The fascia was closed in a running nonlocked fashion with a Stratofix. The Subcutaneous fatty tissue was Bovie cauterized as needed for hemostasis. This layer was then reapproximated in a single layer closure of running 3-0 Vicryl to eliminate space. The skin edges were closed in a Subcuticular stitch of 4-0 Monocryl. The incision was cleansed. Cavilon, Steristrips, and Mepilex dressing were applied to the skin . The patient was then transferred to the recovery room bed in stable condition after tolerating the procedure well. Sponge, lap, needle and instrument counts correct times two. Medications given preop and intraoperatively included: Gentamicin and Clindamycin given instructional coach to the operating room. The patient also received Pitocin given IV after cord clamp, and Toradol 30 mg IV times one. For a complete listing of medications given preop and intraoperatively, please see the anesthesia record. Amniotic Membrane Rupture Type: Artificial Amniotic Fluid Description: Clear Placenta Disposition: [facility] Drain: Heart to straight drain Fluids Replaced: LR Cord Entanglement: None Cord Vessel Description: 3 Vessels Esitmated Blood Loss (ml): 600 Infant Gender: Male (1 minute): 9 (5 minute): 9 Delayed cord clamping: No Antibiotic Given: Clindamycin 600mg IV x1 and Gentamicin 1.5mg/kg IV x1 Pt instructed on risks of surgery: Bleeding, Anesthesia Risks, Infection, Need for Future C-Sections - Admit VTE Documentation VTE Present on Admission: No VTE Mechan Device Prophylaxis: SCD's VTE Pharm Prophylaxis ordered?: Yes
--- NOTE | 2019-10-01 11:34 | DCINST_ITS ---
Discharge Diet: No Restrictions Discharge Activity: May not drive while taking narcotic pain medications., May Shower, May Take a Tub Bath Return to work on:: 11/26/19 May resume sexual activity in: 4-6 weeks Lifting Restrictions: 20 pounds Additional Activity Instructions:: Nothing in the vagina for 4-6 weeks. You may return to work/school in 6 weeks. Change Dressing in (Days):: 14 Remove Dressing in (days):: 14 Cleanse incision/area with: Soap & Water, Keep Dressing Clean & Dry Additional Instructions: If you experience any of the following, contact your healthcare provider. * Bleeding that soaks a pad every hour for 2 hours * Fever 100.4 or higher * Unrelieved incision or abdominal pain * Swelling, redness, discharge or bleeding from your incision or episiotomy site * Your incision begins to separate * Problems urinating (including inability to urinate or burning while urinating). * Visual changes * Severe headache * Flu-like symptoms * Pain or redness in one of both of your breasts * Pain, warmth, tenderness or swelling in your legs, especially the calf area * Frequent nausea and vomiting * Symptoms of depression or anxiety If you experience any of the following, call 911 or go to the nearest Emergency Room. * Chest pain * Problems breathing * Seizure activity * Partial or complete paralysis of a body part, slurred speech, weakness or drooping of the face, or a sudden inability to walk or hold your balance Allergies/Adverse Reactions: Allergies amoxicillin [From Trimox] Allergy (Verified 10/01/19 06:07) Hives Medications to take at Discharge Docusate Sodium [Colace] 100 mg PO BID #30 cap 10/01/19 Naproxen [Naprosyn] 250 - 500 mg PO TID PRN PRN #30 tab 10/01/19 Oxycodone [Oxyir] 5 mg PO Q6H PRN PRN 4 Days #15 tablet 10/01/19 Polyethylene Glycol 3350 [Miralax] 17 gm PO DAILY PRN #14 packet 10/01/19 The following prescriptions were given: Docusate Sodium [Colace] 100 mg PO BID #30 cap Transmission Status: Pending to [id number] Polyethylene Glycol 3350 [Miralax] 17 gm PO DAILY PRN #14 packet PRN Reason: Constipation Transmission Status: Pending to [id number] Naproxen [Naprosyn] 250 - 500 mg PO TID PRN PRN #30 tab PRN Reason: Mild-Mod Pain (1-03/09) Transmission Status[facility] Oxycodone [Oxyir] 5 mg PO Q6H PRN PRN 4 Days #15 tablet PRN Reason: Mod-Severe Pain (-08/09) Follow-Up: Call to make an appointment with your doctor for an incision check in 1-2 weeks. You will also need a 6 week post- follow up appointment. Test results from this visit will be discussed in further detail at your follow- up appointment, if applicable. Please Follow Up With: Marine Robledo MD - [phone] When: Call to make an appointment for an incision check in 2 weeks. Primary Care Physician: Care Physician,No Primary [Primary Care Provider] - Proposed Discharge Date: 10/03/19
[2019-10-01] MEDS: Lactated Ringers 1,000 ML 100 ML IV ×2 (12:24→22:34)
[2019-10-01] MEDS: Ketorolac 30 MG/ML Syringe IV ×2 (14:24→21:24)
--- NOTE | 2019-10-01 17:47 | NURSING ---
i assumed care of Marya and baby at 1600.
[2019-10-02] VITALS (10 sets, daily range): BP systolic 100–126; BP diastolic 38–71; PULSE 70–91; RESP 16–18; TEMP 36.2–36.6; O2SAT 99–100
[2019-10-02] MEDS: Ketorolac 30 MG/ML Syringe IV ×3 (02:46→14:23)
[2019-10-02 06:58] LABS: Hematocrit 31.4 % (37-47); Hemoglobin 10.6 g/dL (12.0-15.0); Mean Corp Hgb Conc 33.8 g/dL (32-36); Mean Corpuscular Hgb 29.4 pg (27.0-32.0); Mean Platelet Vol. 13.4 fl (6.2-12.0); Platelet Count 123 K/mm3 (150-450); RBC Distribution Width SD 44.1 fl (35.1-43.9); Red Blood Count 3.61 M/mm3 (4.2-5.4); White Blood Count 10.2 K/mm3 (4.4-11.0)
[2019-10-02] MEDS: Enoxaparin 40 MG/0.4 ML Syringe SC (07:06)
--- NOTE | 2019-10-02 08:33 | PCM.PN.OB ---
Subjective: POD#1 Repeat C/S Doing well. Tolerating diet. minimal pain with IV toradol and having had Duramorph. Bottle feeding. Has a small child at home. Would like to leave today if able. Objective: Lying in bed, holding sleeping . NAD - Physical Exam Vitals/I&O's: Vital Signs Temp Pulse Resp BP Pulse Ox 97.9 F 70 18 100/38 L 100 10/02/19 04:00 10/02/19 04:00 10/02/19 07:00 10/02/19 04:00 10/02/19 07:00 Oxygen Delivery Method Room Air Weight: 90.083 kg Body Mass Index (BMI) 35.2 Intake and Output for Last 24 Hours 09/30/19 10/01/19 10/02/19 23:59 23:59 23:59 Intake Total 2822.5 / 2822.5 Output Total 1200 / 1200 750 / 750 Balance 1622.5 / 1622.5 -750 / -750 General: Alert, Oriented x3, Cooperative, No apparent distress HEENT: Atraumatic, EOMI Neck: Supple Abdomen: Soft - Fundus firm NT at 2 cm inferior to umbilicus Skin: Incision - Mepliex dressing CDI. Neurological: Cranial nerves II-XII grossly intact Psych/Mental Status: Normal Affect Laboratory Results 10/02/19 06:45: WBC 10.2, RBC 3.61 L, Hgb 10.6 L, Hct 31.4 L, MCV 87.0, MCH 29.4, MCHC 33.8, RDW Std Deviation 44.1 H, RDW Coeff of Kamryn 14.0, Plt Count 123 L, MPV 13.4 H Current Medications Acetaminophen (Tylenol) 1,000 mg PO Q8H PRN PRN Reason: Pain Score 1-3/10 Bisacodyl (Dulcolax) 10 mg RECTAL UD PRN PRN Reason: If no BM Diphenhydramine HCl (Benadryl) 25 mg PO Q6H PRN PRN PRN Reason: ITCHING Stop: 10/02/19 18:59 Enoxaparin Sodium (Lovenox) 40 mg SC DAILY@0600 ALHAJI Last Admin: 10/02/19 07:06 Dose: 40 mg Documented by: Hydrocortisone (Hytone) 1 applic TOPICAL TID PRN PRN; Protocol PRN Reason: Discomfort Lactated Ringer's () 1,000 mls @ 100 mls/hr IV .Q10H [facility] Last Admin: 10/02/19 06:58 Dose: Not Given Documented by: Naloxone HCl 4 mg/ Dextrose 504 mls @ 0 mls/hr IV .Q0M PRN; Protocol PRN Reason: Respiratory depression Ketorolac Tromethamine (Toradol) 30 mg IV Q6H [facility] Stop: 10/03/19 08:31 Last Admin: 10/02/19 02:46 Dose: 30 mg Documented by: Methylergonovine Maleate (Methergine) 0.2 mg IM X1 PRN PRN Reason: Uterine Atony Naloxone HCl (Narcan) 0.02 mg IV Q1M PRN PRN Reason: RR <10 and pt unresponsive Naproxen (Naprosyn) 250 - 500 mg PO Q8H PRN PRN PRN Reason: Pain Score 1-3/10 Ondansetron HCl (Zofran) 4 mg IV Q4H PRN PRN PRN Reason: Nausea Oxycodone HCl (Oxyir) 5 - 10 mg PO Q4H PRN PRN PRN Reason: Pain Score 4-10/10 Prochlorperazine Edisylate (Compazine Iv) 10 mg IV Q6H PRN PRN PRN Reason: NAUSEA Senna/Docusate Sodium (Senokot-S, Elizabeth-Colace) 0 tablet PO DAILY PRN PRN Reason: Constipation Simethicone (Mylicon) 80 mg PO PCHS PRN PRN Reason: Indigestion/stomach pain Last Admin: 10/02/19 02:51 Dose: 80 mg Documented by: Sodium Chloride () 5 - 15 ml IV UD PRN PRN Reason: SALINE FLUSH Zolpidem Tartrate (Ambien (Generic)) 5 mg ORAL QHS PRN PRN PRN Reason: Insomnia Medical Necessity - Tobacco Use Smoking Status: Light Smoker (<10/day) Assessment/Plan All Active Problems Pre-eclampsia affecting childbirth (Acute) POD#1 Repeat C/S 39 1/7 wk Stable postop. AVSS and benign exam. Inc diet and activity as tolerated. S/L or D/C IV Would like to go home today. May remove IV Stop all IV meds, including Toradol q 6 hrs. Heart to be removed for voiding trial Continue Tylenol and Aleve prn for pain with OxyIR also. Abdominal binder prn. If elects to go home today, and all criteria met, RTO in 1-2 wk for postop incision check. Reviewed activity restrictions.
[2019-10-02] MEDS: Senna/Docusate Sodium 1 Tablet PO (08:46)
[2019-10-02] MEDS: 0.9% Saline Lock 10 ML Syringe IV (14:24)
== END 2019-10-02 18:15 | disposition home or self-care (01) | DRG 540 ==
PROVIDERS: Admitting Provider Obstetrics & Gynecology; Referring Provider Obstetrics & Gynecology; Visit Provider Obstetrics & Gynecology
PROC: 10D00Z1 Extraction of Products of Conception, Low, Open Approach (ICD-10-PCS; CPT 59514; principal; 2019-10-01 07:15)
DX: O65.5 Obstructed labor due to abnormality of maternal pelvic organs (principal); O34.211 Maternal care for low transverse scar from previous cesarean delivery; Z3A.39 39 weeks gestation of pregnancy; Z37.0 Single live birth; Z80.3 Family history of malignant neoplasm of breast; F17.210 Nicotine dependence, cigarettes, uncomplicated; O99.334 Smoking (tobacco) complicating childbirth
CPT/HCPCS: 85025; 85027; 86850; 86900; 86901; 99218; J7120; A4216; G0378; J2405

== ENCOUNTER 2021-12-02 13:00 | Inpatient (IN) | payer MEDICAID, SELFPAY ==
[2021-12-02] VITALS (14 sets, daily range): BP systolic 112–160; BP diastolic 55–121; PULSE 65–75; RESP 14–18; TEMP 36–36.9; O2SAT 95–99; BMI 37.8
--- NOTE | 2021-12-02 | FALS_PTH ---
PATIENT: JIMMY HOBSON LOC: [facility] U#:[id number] AGE/SX: 21/F ROOM: WP007 RE12/02/[address]: Dr. Sabrina Tran MD : 2000 BED: 1 DIS: 12/04/2021 SPEC #: [id number] RECD: 12/02/21 17:45 STATUS: RAY RELizzette #: [id number] JERICHO: 12/02/21 00:[address]: Sabrina Tran DEPT: SURGICAL PATHOLOGY RECD BY: Brendan Nava ENTERED: 12/03/21 08:35 SP TYPE: FALL TUBES OTHR DR: No Primary Care Phys Tissues: Fallopian tube Procedures: Surgery Specimen Level II HEADER OPERATION: Tubal ligation PRE-OP DIAGNOSIS: Sterilization TISSUE SUBMITTED: Fallopian tubes MICROSCOPIC DIAGNOSIS Right fallopian tube, salpingectomy: Complete segment of fallopian tube with no pathologic change. Left fallopian tube, salpingectomy: Complete segment of fallopian tube with no pathologic change. CIPRIANO:jorge alberto 12/07/2021 MICROSCOPIC DESCRIPTION Slides are reviewed. GROSS DESCRIPTION Received in fixative is one container labeled with the patient's name and designated bilateral fallopian tubes, right with suture. The specimen consists of two fallopian tubes with an average length of 6.5 cm and has an average diameter of 0.8 cm. Both fallopian tubes have normal fimbriated ends. No mass lesions are identified. Cardiac Cath Lab Manager sections are submitted in two cassettes as follows: 1 - right fallopian tube, 2 - left fallopian tube. / AM:[facility] 12/03/21 TC:4 CPT: 06749 x2
[2021-12-02] MEDS: Lactated Ringers 1,000 ML 999 ML IV (14:00)
[2021-12-02] MEDS: Acetaminophen 500 MG Tablet 1000 MG PO ×2 (14:18→20:29)
[2021-12-02] MEDS: Lactated Ringers 1,000 ML 150 ML IV (15:01)
[2021-12-02 15:05] LABS: Bedside Glucose 75 mg/dL (70-110)
[2021-12-02 15:22] LABS: Absolute Lymphocyte Count 2.18 X10^3/uL (0.83-4.51); Absolute Neutrophil Count 8.8 X10^3/uL (2.0-7.7); Basophil# 0.04 X10^3/uL; Basophil% 0.3 % (0-1); Eosinophil# 0.04 X10^3/uL; Eosinophils% 0.3 % (0-5); Hematocrit 35.9 % (37-47); Lymphocyte # 2.18 X10^3/ul (0.83-4.51); Lymphocyte % 18.7 % (19-41); Mean Corp Hgb Conc 33.4 g/dL (32-36); Mean Corpuscular Hgb 27.8 pg (27.0-32.0); Mean Corpuscular Volume 83.1 fL (81-99); Monocyte# 0.59 X10^3/uL; Monocyte% 5.1 % (0-10); NRBC Flagged by Analyzer 0 % (0-5); Neutrophil # 8.77 X10^3/uL (2.7-7.7); Neutrophil % 75.3 % (47-70); Platelet Count 166 K/mm3 (150-450); RBC Distribution Width CV 13.9 % (11.6-14.6); RBC Distribution Width SD 40.6 fl (35.1-43.9); Red Blood Count 4.32 M/mm3 (4.2-5.4); White Blood Count 11.7 K/mm3 (4.4-11.0)
[2021-12-02] MEDS: Sodium Citrate/Citric Acid 30 ML UDC PO (15:34)
[2021-12-02] MEDS: Cefazolin 2 GM in 0.9% Normal Saline 100 ML IV (15:39)
--- NOTE | 2021-12-02 16:33 | EX.PCM.OBRPT ---
Assessment & Plan (1) 39 weeks gestation of : (2) Previous delivery affecting : (3) Sterilization: Maternal Data Information Final EARLINE: 12/09/21 Gestational age: 39 0/7 Details Operative Information Date of Procedure: 12/02/21 Pre-Operative Diagnosis: 39 weeks, previous cs, desires sterilization Post-Operative Diagnosis: same Classification: Scheduled Procedure Type: low transverse woodyard operator #1: Gunner Nicholas woodyard operator #2: Mckenna Type of Anesthesia: Spinal Special Medications: duramorph Drain: Heart to straight drain Estimated Blood Loss: 800 Fluids Replaced: 800 Procedure Start Time: 16:00 Procedure Stop Time: 16:35 Time of Delivery: 16:02 Findings Description of Procedure: The patient was taken to the operating room. She was prepped and draped in the dorsal supine position with a leftward tilt. A Pfannenstiel skin incision was made approximately 2 cm above the symphysis pubis and carried through to underlying layer fascia with the scalpel. The fascia was incised incised in the midline and extended laterally with the Palma scissors. The fascia was dissected off the rectus muscles with blunt and sharp dissection. The rectus muscles were in the midline and the peritoneum was entered bluntly. The peritoneal incision was stretched and the bladder blade was placed. The uterine incision was made in a low transverse fashion with the scalpel and extended superiorly and inferiorly with blunt dissection. The amniotic membranes were ruptured bluntly and clear amniotic fluid returned. The 's head was brought to the incision in the flexed position and delivered without difficulty. The remainder of the infant was delivered with gentle traction and fundal pressure in the standard fashion. The mouth and nares were bulb suctioned. The cord was clamped and cut as the was stimulated. Cord clamping was delayed. The was handed off to the waiting nursing staff. The placenta was delivered with fundal massage and gentle traction in the standard fashion. The uterus was exteriorized and cleared of all clots and debris. The cervix was dilated with a ring forcep. The uterine incision was closed with #1 Vicryl in a running locked fashion. The incision was examined and was found to be hemostatic. The uterus was placed back into the peritoneal cavity and hemostasis was again confirmed. The left fallopian tube was identified and followed out to the fimbriated end. The antimesenteric portion was clamped, sealed and transected with the LigaSure device. The entire tube was amputated and sent to pathology. Hemostasis was noted. The same procedure was performed on the contralateral side. The rectus muscles were examined and any bleeding was Bovie cauterized. The parietal peritoneum and rectus muscles were closed en bloc with an 0 Vicryl running suture. The surgical teams outer gloves were then changed. The rectus fascia was examined and any bleeding was Bovie cauterized and the rectus fascia was closed with 1 Vicryl suture in a running standard fashion. The subcutaneous tissue was examining and any bleeding was Bovie cauterized. The subcutaneous tissue was reapproximated with 3-0 Vicryl suture. The skin was closed in a subcuticular fashion by the [employer] with me present in the labor and delivery suite. I performed the remainder of the procedure with assistance. All sponge, lap, and needle counts were correct. The patient was taken to her room for recovery in a stable condition. Presentation: Positive for Vertex Amniotic Membrane Rupture Type: Artificial Amniotic Fluid Description: Clear Placental Delivery Description: Expressed Placenta Disposition: [facility] Specimen(s) Sent to Pathology: Bilateral fallopian tube Cord Vessel Description: 3 Vessels Cord Entanglement: None A Gender: Female (Ambikaley, 7lb 15 oz) (1 minute): 9 (5 minute): 9 Delayed Cord Clamping: Yes Complications Complications: none
--- NOTE | 2021-12-02 16:37 | PCM.HP.OB ---
HPI - General General Date of Admission: 12/02/21 HPI Narrative JIMMY HOBSON, is a 21-year-old female at 39 weeks gestation who had a previous section x2 desires repeat. She denies any vaginal bleeding or leaking of fluid. She is had some irregular contractions. has been complicated to date by diet-controlled gestational diabetes. Maternal Data Information Final EARLINE: 12/09/21 Gestational age: 39 PFSH PFS Medical History (Updated 12/02/21 @ 16:[address] Sabrina Tran MD) Asthma Family history of hearing loss at age younger than 7 years Gestational diabetes Pre-eclampsia Home Medications aspirin [Baby Aspirin] 1 tab PO DAILY 12/02/21 [History Last Taken 11/30/21] [id number] [Prenatabs FA] 1 tab PO DAILY 12/02/21 [History Last Taken Unknown] Allergy/AdvReac Type Severity Reaction Status Date / Time amoxicillin [From Trimox] Allergy Hives Verified 10/01/19 06:07 Surgical History (Updated 12/02/21 @ 16:[address] Sabrina Tran MD) Previous section Social History Smoking Status: Former smoker History Elective abortions Hx Para 2 Spontaneous abortions Hx # Term Pregnancies Ectopic pregnancies Hx # Pregnancies Multiple births # of living children ROS Constitutional Constitutional: Denies fatigue, fever(s) or malaise Eyes Eyes: Denies change in vision ENT HEENT: Denies dizziness or headache(s) Cardiovascular Cardiovascular: Denies chest pain, dyspnea or lightheadedness Respiratory/Chest Respiratory/Chest: Denies cough or dyspnea Gastrointestinal Gastrointestinal: Denies change in bowel habits Genitourinary Genitourinary: Denies burning urination or genital lesions Integumentary Integumentary: Denies rash Neurologic Neurologic: Denies confusion, dizziness, headache(s), numbness or weakness Vital Signs Vital Signs Vital Signs: 12/02/21 13:45 Temperature 98.0 F Temperature Source Temporal Pulse Rate 72 Respiratory Rate 18 Blood Pressure 131/68 H Blood Pressure Mean 89 Blood Pressure Source Monitor Blood Pressure Position Semi-Fowlers Blood Pressure Location Right Arm Pulse Ox 95 Oxygen Delivery Method Room Air Weight Weight: 96.8 kg Body Mass Index (BMI) 37.8 Physical Exam Const alert and no apparent distress General Appearance: cooperative HEENT normocephalic Resp normal respiratory effort Cardio regular rate GI soft to palpation GI Narrative: gravid, nontender, appropriate for gestational age Extremity no calf tenderness General Extremity: edema Skin no wounds Rashes: No rashes noted Psych activity/motor behavior normal Labs Labs Labs: Blood Type O POSITIVE Antibody Screen NEGATIVE Hct 35.9 % (37-47) L Hgb 12.0 g/dL (12.0-15.0) Rubella IgG Antibody 420.3 IU/mL Hep Bs Antigen Non-Reactive (Nonreactive) HIV 1&2 Antibody Non-Reactive (Nonreactive) C.trachomatis DNA (PCR) Negative (Negative) Glucose 1 Hr 50 gm 133 mg/dL (70-140) Group B Strep DNA Negative (Negative) Rhogam given: No Assessment & Plan (1) Sterilization: (2) Previous delivery affecting : PLAN: Risk benefits and alternatives to repeat section at 39 weeks were discussed with the patient, questions were answered to her satisfaction she desires to proceed. Patient had a positive Covid test last week however, she had a positive test on November 02. This is considered persistently positive PCR test. Her symptoms have resolved. She does not have active Covid. Patient desires sterilization. She understands is permanent, irreversible risk of failure and regret. (3) 39 weeks gestation of :
[2021-12-02] MEDS: Oxytocin 30 units/NS 500 ml 30 UNITS/500 ML IV.SOLN 167 UNITS IV (16:52)
[2021-12-02] MEDS: Ketorolac 30 MG/ML Syringe IV ×2 (17:22→23:08)
[2021-12-02 17:45] LABS: Pathology Specimen OB SEE PATHOLOGY REPORT
[2021-12-02 18:15] LABS: Bedside Glucose 92 mg/dL (70-110)
[2021-12-02] MEDS: Lactated Ringers 1,000 ML 100 ML IV (20:29)
[2021-12-03 01:14] VITALS: BP 133/62; PULSE 77; RESP 18; TEMP 36.1; O2SAT 96
[2021-12-03] MEDS: Acetaminophen 500 MG Tablet 1000 MG PO ×4 (03:26→20:58)
[2021-12-03 03:30] VITALS: BP 110/56; PULSE 73; RESP 16; TEMP 36.1; O2SAT 98
[2021-12-03] MEDS: Enoxaparin 40 MG/0.4 ML Syringe SC (04:48)
[2021-12-03] MEDS: Ketorolac 30 MG/ML Syringe IV ×2 (05:14→11:18)
[2021-12-03] MEDS: 0.9% Saline Lock 10 ML Syringe IV ×2 (05:14→11:18)
[2021-12-03 06:19] LABS: Hematocrit 29.5 % (37-47); Mean Corp Hgb Conc 33.9 g/dL (32-36); Mean Corpuscular Hgb 28.4 pg (27.0-32.0); Mean Corpuscular Volume 83.8 fL (81-99); Platelet Count 151 K/mm3 (150-450); RBC Distribution Width CV 13.9 % (11.6-14.6); RBC Distribution Width SD 41.6 fl (35.1-43.9); Red Blood Count 3.52 M/mm3 (4.2-5.4); White Blood Count 17.4 K/mm3 (4.4-11.0)
[2021-12-03 09:15] VITALS: BP 120/63; PULSE 71; RESP 16; TEMP 36.1
[2021-12-03] MEDS: Senna/Docusate Sodium 1 Tablet PO (09:27)
[2021-12-03 09:31] LABS: Bedside Glucose 62 mg/dL (70-110)
--- NOTE | 2021-12-03 09:57 | PCM.PN.OB ---
Subjective Subjective Pain controlled. Denies complaints. Objective Data Objective Data Vital Signs: Vital Signs Temp Pulse Resp BP Pulse Ox 96.9 F L 71 16 120/63 98 12/03/21 09:15 12/03/21 09:15 12/03/21 09:15 12/03/21 09:15 12/03/21 03:30 Oxygen Delivery Method Room Air Weight: 213 lb 6.519 oz Body Mass Index (BMI) 37.8 Intake & Output: Intake and Output for Last 24 Hours 12/01/21 12/02/21 12/03/21 23:59 23:59 23:59 Intake Total 2205 / 2205 701.67 / 701.67 Output Total 350 / 350 250 / 250 Balance 1855 / 1855 451.67 / 451.67 Lab / Micro Data Result Diagrams: 12/03/21 06:08 Labs: Laboratory Results - last 24 hr 12/02/21 14:00: WBC 11.7 H, RBC 4.32, Hgb 12.0, Hct 35.9 L, MCV 83.1, MCH 27.8, MCHC 33.4, RDW Std Deviation 40.6, RDW Coeff of Kamryn 13.9, Plt Count 166, Immature Gran % (Auto) 0.300, Neut % (Auto) 75.3 H, Lymph % (Auto) 18.7 L, [facility] % (Auto) 5.1, Eos % (Auto) 0.3, Baso % (Auto) 0.3, Absolute Neuts (auto) 8.8 H, Absolute Lymphs (auto) 2.18, Nucleated RBC % 0 12/02/21 14:00: Blood Type O POSITIVE, Antibody Screen NEGATIVE 12/02/21 14:25: POC Glucose 75 12/02/21 18:05: POC Glucose 92 12/03/21 06:08: WBC 17.4 H, RBC 3.52 L, Hgb 10.0 L, Hct 29.5 L, MCV 83.8, MCH 28.4, MCHC 33.9, RDW Std Deviation 41.6, RDW Coeff of Kamryn 13.9, Plt Count 151, MPV TNP 12/03/21 09:22: POC Glucose 62 L Physical Exam Const alert, oriented x3 and no apparent distress HEENT normocephalic GI soft to palpation, non-tender and non-distended GI Narrative: fundus firm, mid & below umbilicus Incision - bandage c/d/i Extremity normal to inspection and no calf tenderness Assessment & Plan (1) Previous delivery affecting : COMMENT: POD#1 PLAN: Heme - HDS, cbc reviewed ID - AF, no signs infection GI/ - no issues GDM - FBS normal Routine care
[2021-12-03 12:36] VITALS: BP 111/42; PULSE 61; RESP 18; TEMP 36.1; O2SAT 98
[2021-12-03 16:00] VITALS: BP 129/81; PULSE 74; RESP 16; TEMP 36.1
[2021-12-03] MEDS: Ibuprofen 600 MG Tablet PO (17:34)
[2021-12-03 20:00] VITALS: BP 137/73; PULSE 71; RESP 18; TEMP 36.3; O2SAT 98
[2021-12-04] MEDS: Ibuprofen 600 MG Tablet PO ×3 (00:15→12:28)
[2021-12-04] MEDS: Acetaminophen 500 MG Tablet 1000 MG PO ×2 (03:08→10:25)
[2021-12-04 03:10] VITALS: BP 139/78; PULSE 71; RESP 18; TEMP 36.1
--- NOTE | 2021-12-04 08:39 | PCM.PROGNOTE ---
Subjective Subjective Patient seen at bedside, doing well. Patient reports good pain control. Mild lochia. Patient denies any nausea or vomiting. Ambulating without difficulty. Tolerating regular diet, positive BM.voiding w/o difficulty. Bottle feeding. Objective Data Objective Data Vital Signs: Vital Signs Temp Pulse Resp BP Pulse Ox 97.0 F L 71 18 139/78 H 98 12/04/21 03:10 12/04/21 03:10 12/04/21 03:10 12/04/21 03:10 12/03/21 20:00 Oxygen Delivery Method Room Air Weight: 96.8 kg Body Mass Index (BMI) 37.8 Intake & Output: Intake and Output for Last 24 Hours 12/02/21 12/03/21 12/04/21 23:59 23:59 23:59 Intake Total 2205 / 2205 701.67 / 701.67 Output Total 350 / 350 250 / 250 Balance 1855 / 1855 451.67 / 451.67 Lab / Micro Data Result Diagrams: 12/03/21 06:08 Labs: Laboratory Results - last 24 hr 12/03/21 09:22: POC Glucose 62 L Physical Exam Narrative dressing dry and intact. Const alert and oriented x3 General Appearance: cooperative HEENT normocephalic Neck General: normal visual inspection GI soft to palpation and non-distended GI Narrative: Fundus firm Extremity normal to inspection and no calf tenderness Skin no rashes or lesions noted Neuro oriented x3 and CN's II-XII intact bilaterally Psych mental status grossly normal Assessment & Plan Assessment/Plan (1) Sterilization: (2) Delivery by section: (3) Gestational diabetes: QUALIFIERS: Gestational diabetes mellitus control: diet-controlled Trimester: third trimester Qualified Code(s): O24.410 - Gestational diabetes mellitus in , diet controlled PLAN: POD# 2 , Doing well Routine care pain mgmt monitor VS ambulation possible dc home depending on baby status
--- NOTE | 2021-12-04 08:43 | PCM.DC ---
Discharge Instructions Diet Discharge Diet: No restrictions Activity May resume sexual activity in: 6-8 weeks Lifting Restrictions: 25 Dressing / Incision Call your doctor if your incision/area has: Continuous Slow Oozing, Sudden Increased Bleeding, Increased Pain/ Swelling, Increased Redness, Foul Smelling Discharge and Swelling at the incision site Call your doctor if you observe: Fever of 101 or Higher, Inability to urinate, Using more than 1 pad per hour and Uncontrolled pain Additional Dressing/Incision Instructions:: remove dressing at 7 days post op- if it becomes saturated prior to that time you may remove it. Let soap and water run over incision sites and dab dry. keep incision clean and dry. Follow Up Care Please Follow Up With: Kanchan Blankenship MD When: 1-2 weeks post of incision check and again at 6 weeks post . [phone] Test Results: Test results from this visit will be discussed in further detail at your follow-up appointment, if applicable. Discharge Plan Admission Admit Date/Time: 12/02/21 13:00 Attending Provider: Sabrina Tran Primary Care Provider: Care Physician,Sabra Primary Discharge Orders/Prescriptions Prescriptions: New acetaminophen 500 mg Tablet 1,000 mg PO Q6H Qty: 0 RF: 0 ibuprofen 600 mg Tablet 600 mg PO Q6H Qty: 0 RF: 0 simethicone [Mi-Acid Gas Relief(simethicon)] 80 mg Tablet,Chewable 80 mg PO PCHS PRN (Reason: Indigestion/stomach pain) Qty: 0 RF: 0 Continued Prenatabs FA 29-1 mg Tablet 1 tab PO DAILY RF: 0 Discontinued aspirin [Baby Aspirin] 81 mg Tablet,Chewable 1 tab PO DAILY RF: 0 Referrals / Follow Up: Care Physician,No Primary [Primary Care Provider] - Disposition Disposition (needs filled in before D/C Order can be placed): Home, Self Care
--- NOTE | 2021-12-04 08:44 | PCM.DC.BLA ---
Discharge Summary Date of Admission: 12/02/21 Date of Discharge: 12/04/21 Summary: Patient was admitted for repeat elective section 39 weeks gestation and for sterilization. h/o GDMA1. Patient underwent a low transverse repeat section by Dr. Sabrina Tran without complication as well as a bilateral salpingectomy. Patient did well postoperatively and and plan that she will be discharged home on postoperative day #2 so long as is able to be discharged. Meaningful Use Info Meaningful Use Diagnoses (Choose all that apply): None applicable Discharge Plan Admission Admit Date/Time: 12/02/21 13:00 Attending Provider: Sabrina Tran Primary Care Provider: Care Physician,Sabra Primary Discharge Orders/Prescriptions Prescriptions: New acetaminophen 500 mg Tablet 1,000 mg PO Q6H Qty: 0 RF: 0 ibuprofen 600 mg Tablet 600 mg PO Q6H Qty: 0 RF: 0 simethicone [Mi-Acid Gas Relief(simethicon)] 80 mg Tablet,Chewable 80 mg PO PCHS PRN (Reason: Indigestion/stomach pain) Qty: 0 RF: 0 Continued Prenatabs FA 29-1 mg Tablet 1 tab PO DAILY RF: 0 Discontinued aspirin [Baby Aspirin] 81 mg Tablet,Chewable 1 tab PO DAILY RF: 0 Referrals / Follow Up: Care Physician,No Primary [Primary Care Provider] - Disposition Disposition (needs filled in before D/C Order can be placed): Home, Self Care
[2021-12-04 10:14] VITALS: BP 132/54; PULSE 90; RESP 18; TEMP 36.1; O2SAT 96
[2021-12-04] MEDS: Senna/Docusate Sodium 1 Tablet PO (10:25)
== END 2021-12-04 13:35 | disposition home or self-care (01) | DRG 539 ==
PROVIDERS: Admitting Provider Obstetrics & Gynecology; Visit Provider Obstetrics & Gynecology
DX: O34.211 Maternal care for low transverse scar from previous cesarean delivery (principal); O24.420 Gestational diabetes mellitus in childbirth, diet controlled; Z30.2 Encounter for sterilization; Z86.16 Personal history of COVID-19; Z87.891 Personal history of nicotine dependence; Z37.0 Single live birth; Z79.82 Long term (current) use of aspirin; Z3A.39 39 weeks gestation of pregnancy
CPT/HCPCS: 59050; 82962; 85025; 85027; 86850; 86900; 86901; 88302; 99218; 99406; J7120; A4216; G0378; J2405

== ENCOUNTER 2022-05-16 03:10 | Emergency (ER) | payer MEDICAID, SELFPAY ==
[2022-05-16 03:11] VITALS: BP 145/85; PULSE 101; RESP 24; TEMP 37; O2SAT 96; BMI 40.6
[2022-05-16 03:18] VITALS: O2SAT 100
--- NOTE | 2022-05-16 03:45 | RAD_ITS ---
STUDY: X-RAY - SOFT TISSUE NECK REASON FOR EXAM: Female, 21 years old. Sensation fullness in neck TECHNIQUE: AP and lateral view(s) of the neck were obtained. COMPARISON: None. FINDINGS: Normal visualized nasopharynx, oropharynx, hypopharynx. Normal epiglottis. Normal visualized subglottic tracheal air column. Normal prevertebral soft tissue structures. Normal visualized osseous structures. The soft tissue structures are unremarkable. RAD/Neck for Soft Tissue IMPRESSION: No abnormal finding in the soft tissues of the neck. No finding to explain sensational fullness. Electronically Signed: Leon Sarabia MD at 4:03 EDT ,
--- NOTE | 2022-05-16 03:56 | EDS_ITS ---
HPI History of Present Illness Chief Complaint: Shortness of Breath Informant: patient Narrative Narrative: Patient is a 21-year-old female with no significant past medical history presenting with throat discomfort and sensation of shortness of breath. Patient states that when she laid down last night (05/14) she felt like she had a hard time breathing. She states there is like a fullness and discomfort in her upper throat. In addition she feels like her mouth has been dry. Feels that her voice is more raspy than normal. She again tried to lay down tonight and had the same sensation. She came to the emergency room for further evaluation. She denies any chest pain. She does not feel she is having a difficult time breathing but just that her throat is swollen and this is affecting her breathing. Denies any upper respiratory symptoms. Denies any fever or chills. Never had a sensation like this before. No GI or symptoms. No other complaints at this time. [facility] Medical History Asthma Family history of hearing loss at age younger than 7 years Gestational diabetes Pre-eclampsia Allergy/AdvReac Type Severity Reaction Status Date / Time amoxicillin [From Trimox] Allergy Hives Verified 10/01/19 06:07 Family History Mother Cystic fibrosis carrier Grandmother Breast cancer Surgical History Previous section Social History Smoking Status: Current every day smoker tobacco type: e-cigarettes ROS ROS ED Constitutional Constitutional ED: Denies chills or fever(s) Eyes Eyes: Denies change in vision ENT ENT ED: Reports sore throat; Denies ear pain or rhinorrhea Cardiovascular Cardiovascular: Reports orthopnea; Denies chest pain or palpitations Respiratory/Chest Respiratory/Chest: Reports dyspnea and orthopnea; Denies cough or dyspnea on exertion Gastrointestinal Gastrointestinal: Denies abdominal pain, nausea or vomiting Genitourinary Genitourinary ED: Denies dysuria Musculoskeletal Musculoskeletal: Denies arthralgias Integumentary Denies rash Neurologic Neurologic: Denies headache(s) or weakness Psychiatric Psychiatric: Denies anxiety EXAM Physical Exam Const Vital Signs: 05/16/22 03:11 05/16/22 03:18 Temperature 98.6 F Temperature Source Oral Pulse Rate 101 H Respiratory Rate 24 H Respiratory Effort Normal Non-Labored Respiratory Depth Normal Respiratory Pattern Normal Blood Pressure 145/85 H Blood Pressure Mean 105 Pulse Ox 96 Oxygen Delivery Method Room Air Room Air Positive well nourished, well developed and obese General Appearance ED: well developed and NAD Nutritional Appearance: obese HEENT Reports moist mucous membranes HEENT Narrative: Normal oropharynx. Midline uvula. Normal tonsils. No erythema or exudate appreciated. Sublingual mucosa is soft. Normal phonation. No hot potato voice. Eyes PERRL and EOMs intact bilaterally Neck no lymphadenopathy and supple Neck Narrative: Normal range of motion. No meningeal signs. Chest Wall inspection of chest normal and palpation of chest normal Resp normal respiratory effort and clear to auscultation bilaterally Resp Narrative: No stridor. Auscultation: Negative for rales or rhonchi Cardio regular rate, regular rhythm and no murmurs GI normal to inspection, nondistended, normoactive bowel sounds and non-tender Extremity normal to inspection Neuro oriented x3 Motor Exam: Negative for general weakness Skin no rashes or lesions noted MDM MDM MDM Narrative Medical decision making narrative: Patient is evaluated for sensation of fullness in her throat that is causing her to feel short of breath. On arrival patient is tachycardic and mildly tachypneic however this improves with just rest in the emergency room. She is nonhypoxic. Clinically she has a normal exam. She is clear breath sounds no stridor. No oral pharyngeal edema is appreciated on physical exam. She has no erythema or exudates of the tonsils. Did obtain an x-ray soft tissue neck which did not show any findings consistent with epiglottitis, retropharyngeal abscess or other cause of the symptoms. As patient is well-appearing with no voice changes that I can appreciate, and a normal physical exam I have a lower suspicion for subtle peritonsillar abscess. She does not have any infectious symptoms. Patient given a dose of Decadron in case there is some pharyngeal swelling and have not able to visualize or appreciate on x-ray. She is offered a CT soft tissue neck however declines. She is given strict return precautions. On exit counseling she does mention that she is had some postnasal drip. Is possible that this is causing this throat sensation. She is counseled to take [id number] decongestants in addition to the steroid dose that she is given in the emergency room. I do not think there is any type of cardiopulmonary process going on I do not think further cardiac/pulmonary work-up is indicated at this time. Is given ENT referral for outpatient follow-up. Radiography Diagnostic Testing: Clinical Impression(s) from Imaging Studies Soft Tissue Neck X-Ray 05/16/22 03:45 IMPRESSION: No abnormal finding in the soft tissues of the neck. No finding to explain sensational fullness. Electronically Signed: Leon Sarabia MD at 4:03 EDT , 2 view soft tissue neck?no acute process interpreted by emergency medicine physician as well as radiology Discharge Plan Triage Chief Complaint: Shortness of Breath ED Provider: Brit Quigley Dx/Rx/DC Orders Clinical Impression: Sensation of swollen throat, Acute dyspnea Instructions: When You Have a Sore Throat, ED Dyspnea Primary Care Provider: Care Physician,No Primary Referrals: Delvis Hogeu MD [STAFF PHYSICIAN] - (As needed if symptoms persist ) Care Physician,No Primary [Primary Care Provider] - Activity Restrictions/Additional Instructions: Take [id number] allergy medicine such as Zyrtec or decongestants to see if this helps with the postnasal drip. If you start having significant change in your voice, difficulty swallowing or any worsening symptom please return to the emergency room immediately. Disposition Disposition: Home, Self Care
[2022-05-16] MEDS: dexAMETHasone 10 MG/ML Vial PO.IVFORM (04:14)
[2022-05-16 04:15] VITALS: PULSE 89; RESP 18; O2SAT 100
== END 2022-05-16 04:25 | disposition home or self-care (01) ==
PROVIDERS: Emergency Provider Emergency Medicine; Visit Provider Emergency Medicine
DX: R06.82 Tachypnea, not elsewhere classified (principal); R09.82 Postnasal drip; F17.210 Nicotine dependence, cigarettes, uncomplicated; J45.909 Unspecified asthma, uncomplicated
CPT/HCPCS: 70360; 99283

== ENCOUNTER 2022-09-24 21:40 | Emergency (ER) | payer MEDICAID, SELFPAY ==
[2022-09-24 21:41] VITALS: PULSE 120; RESP 16; TEMP 35.9; O2SAT 97; BMI 38.0
[2022-09-24 22:14] VITALS: BP 126/75; PULSE 92; RESP 16; O2SAT 97
[2022-09-24 22:19] VITALS: BP 126/75; BP 129/95; BP 98/23; PULSE 102; PULSE 90; PULSE 92
[2022-09-24] MEDS: 0.9% Normal Saline 1,000 ML 999 ML IV (22:28)
[2022-09-24 22:31] LABS: Absolute Lymphocyte Count 3.26 X10^3/uL (0.83-4.51); Basophil# 0.08 X10^3/uL; Basophil% 0.6 % (0-1); Eosinophil# 0.22 X10^3/uL; Eosinophils% 1.7 % (0-5); Hematocrit 38.1 % (37-47); Hemoglobin 13.1 g/dL (12.0-15.0); Lymphocyte # 3.26 X10^3/ul (0.83-4.51); Lymphocyte % 25.9 % (19-41); Mean Corp Hgb Conc 34.4 g/dL (32-36); Mean Corpuscular Hgb 29.3 pg (27.0-32.0); Mean Corpuscular Volume 85.2 fL (81-99); Mean Platelet Vol. 12.4 fl (6.2-12.0); Monocyte# 0.97 X10^3/uL; Monocyte% 7.7 % (0-10); NRBC Flagged by Analyzer 0 % (0-5); Neutrophil # 7.95 X10^3/uL (2.7-7.7); Neutrophil % 63.1 % (47-70); Platelet Count 251 K/mm3 (150-450); RBC Distribution Width CV 13.2 % (11.6-14.6); RBC Distribution Width SD 40.3 fl (35.1-43.9); Red Blood Count 4.47 M/mm3 (4.2-5.4); White Blood Count 12.6 K/mm3 (4.4-11.0)
[2022-09-24 22:32] LABS: Internal QC Validated? YES +Cl - CLEAR BKGD; International Normalized Ratio 0.9; Pregnancy, Serum, hCG Quali. NEGATIVE Negative; Prothrombin Time (Protime)PT. 11.9 SECONDS (11.7-14.9)
[2022-09-24 22:33] LABS: Partial Thromboplast Time 26.8 Seconds (24.1-36.2)
[2022-09-24 22:37] LABS: Anion Gap 4 (5-15); BUN 12 mg/dL (7-18); BUN/Creat Ratio 14.6 RATIO (10-20); Calcium,Total 9.1 mg/dL (8.5-10.1); Chloride 107 mmol/L (98-107); Creatinine, Serum 0.82 mg/dL (0.55-1.02); EST Glomerular Filtration Rate 91 mL/min (>60); Est Glom Filt Rate - Afr Amer 110 mL/min (>60); Estimated Creatinine Clearance 87.51 ml/min; Glucose 116 mg/dL (74-106); Potassium 3.4 mmol/L (3.5-5.1); Sodium Level 139 mmol/L (136-145)
--- NOTE | 2022-09-24 22:39 | EDS_ITS ---
HPI HPI - Female History of Present Illness Chief Complaint: Vag Bleeding Narrative Narrative: Patient is a 22-year-old female with past surgical history of removal of fallopian tubes about 10 months ago. She states that over the past 5 days she has been having persistent vaginal bleed. She denies any history of bleeding disorder or blood thinner use. She states that her concern for is essentially 0 she has had her fallopian tubes removed. She denies any abdominal pain associated with this. She denies any chest pain palpitations shortness of breath or syncopal events. She states that this evening she had 1 bout of vomiting and because of the 5 days of bleeding and now the 1 aspect of vomiting she was concerned and comes in for evaluation [facility] Medical History Asthma Family history of hearing loss at age younger than 7 years Gestational diabetes Pre-eclampsia Smoker Home Medications ondansetron 4 mg disintegrating tablet 4 mg PO TID PRN nausea and vomiting #21 tabs 09/24/22 [Rx Last Taken Unknown] Allergy/AdvReac Type Severity Reaction Status Date / Time amoxicillin [From Trimox] Allergy Hives Verified 09/24/22 21:43 Family History Mother Cystic fibrosis carrier Grandmother Breast cancer Surgical History (Updated 09/24/22 @ 21:51 by Hazel Carrasquillo) Previous section Status post surgical removal of both fallopian tubes Social History Smoking Status: Current every day smoker tobacco type: cigarettes ROS ROS ED Constitutional Constitutional ED: Denies chills or fever(s) ENT ENT ED: Denies sore throat Cardiovascular Cardiovascular: Denies chest pain Respiratory/Chest Respiratory/Chest: Denies cough or dyspnea Gastrointestinal Gastrointestinal: Reports nausea and vomiting; Denies abdominal pain or diarrhea Genitourinary Genitourinary ED: Reports other Details: Positive vaginal bleeding ; Denies dysuria Musculoskeletal Musculoskeletal: Denies myalgias Integumentary Denies rash Neurologic Neurologic: Denies headache(s) Hematologic/Lymphatic Hematologic/Lymphatic: Denies easy bleeding or easy bruising EXAM Physical Exam Const Vital Signs: 09/24/22 21:41 09/24/22 22:14 09/24/22 22:19 Temperature 96.6 F L Temperature Source Temporal Pulse Rate 120 H 92 Pulse Rate [Lying] 92 Pulse Rate [Sitting (for 1 minute prior to obtaining)] 102 H Pulse Rate [Standing (for 1 minute prior to obtaining)] 90 Respiratory Rate 16 16 Blood Pressure 126/75 H Blood Pressure [Lying] 126/75 H Blood Pressure [Sitting (for 1 minute prior to obtaining)] 98/23 L Blood Pressure [Standing (for 1 minute prior to obtaining)] 129/95 H Blood Pressure Mean 92 Blood Pressure Mean [Lying] 92 Blood Pressure Mean [Sitting (for 1 minute prior to obtaining)] 48 Blood Pressure Mean [Standing (for 1 minute prior to obtaining)] 106 Pulse Ox 97 97 Oxygen Delivery Method Room Air Room Air Positive well nourished and well developed General Appearance ED: well developed HEENT Reports moist mucous membranes Eyes PERRL and EOMs intact bilaterally Neck supple Resp normal respiratory effort and clear to auscultation bilaterally Cardio regular rate and regular rhythm GI normal to inspection, nondistended, normoactive bowel sounds, soft to palpation, non-tender, non-distended and no masses GI Narrative: No voluntary guarding or rigidity no pulsatile mass Auscultation: normoactive bowel sounds Palpation: soft Narrative: Patient deferred Extremity normal to inspection Neuro oriented x3 and CN's II-XII intact bilaterally Sensorium / Orientation: alert Psych mental status grossly normal Skin no rashes or lesions noted MDM MDM MDM Narrative Medical decision making narrative: Patient presented to the ER slightly tachycardic but otherwise with stable vitals. Her history and exam is most consistent with dysfunctional uterine bleeding but in order to ensure she is not having an ectopic or need for blood transfusion a basic work-up was obtained. Serum test is negative and hemoglobin is normal at 13. Patient was able to stand without any dizziness or syncopal event. She was hydrated and had no bouts of vomiting in the ER. Therefore at this time with patient able to stand and walk without orthostasis and the fact she is not hypotensive or requiring blood transfusion she can follow-up with [facility] to discuss need for further testing and treatment options Lab Data Attestation: I reviewed the patient's lab results. Labs: Laboratory Results - last 24 hr 09/24/22 09/24/22 09/24/22 22:14 22:14 22:14 WBC 12.6 H RBC 4.47 Hgb 13.1 Hct 38.1 MCV 85.2 MCH 29.3 MCHC 34.4 RDW Std Deviation 40.3 RDW Coeff of Kamryn 13.2 Plt Count 251 MPV 12.4 H Immature Gran % (Auto) 1.000 H Neut % (Auto) 63.1 Lymph % (Auto) 25.9 Gila % (Auto) 7.7 Eos % (Auto) 1.7 Baso % (Auto) 0.6 Absolute Neuts (auto) 8.0 H Absolute Lymphs (auto) 3.26 Nucleated RBC % 0 PT 11.9 INR 0.9 APTT 26.8 Sodium 139 Potassium 3.4 L Chloride 107 Carbon Dioxide 28.0 Anion Gap 4 L BUN 12 Creatinine 0.82 Estim Creat Clear Calc 87.51 Est GFR (MDRD) Af Amer 110 Est GFR (MDRD) Non-Af 91 BUN/Creatinine Ratio 14.6 Glucose 116 H Calcium 9.1 Serum , Qual 09/24/22 22:14 WBC RBC Hgb Hct MCV MCH MCHC RDW Std Deviation RDW Coeff of Kamryn Plt Count MPV Immature Gran % (Auto) Neut % (Auto) Lymph % (Auto) Gila % (Auto) Eos % (Auto) Baso % (Auto) Absolute Neuts (auto) Absolute Lymphs (auto) Nucleated RBC % PT INR APTT Sodium Potassium Chloride Carbon Dioxide Anion Gap BUN Creatinine Estim Creat Clear Calc Est GFR (MDRD) Af Amer Est GFR (MDRD) Non-Af BUN/Creatinine Ratio Glucose Calcium Serum , Qual NEGATIVE Discharge Plan Triage Chief Complaint: Vag Bleeding ED Provider: Kwame Garza Dx/Rx/DC Orders Clinical Impression: DUB (dysfunctional uterine bleeding) Instructions: ED Dysfunctional Uterine Bleeding Prescriptions: New ondansetron 4 mg tablet,disintegrating 4 mg PO TID PRN (Reason: nausea and vomiting) Qty: 21 0RF Primary Care Provider: Care Physician,No Primary Referrals: Selene Thompson MD [Med Staff - Active Staff] - Care Physician,No Primary [Primary Care Provider] - Activity Restrictions/Additional Instructions: Please follow-up with your [facility] to discuss further testing and/or treatment options such as hormone replacement therapy or ablation. If you are having bouts of passing out severe abdominal pain or any further concerns please return to the ER for repeat evaluation Disposition Disposition: Home, Self Care
[2022-09-24 23:32] VITALS: BP 118/63; PULSE 63; RESP 18; O2SAT 97
== END 2022-09-24 23:32 | disposition home or self-care (01) ==
PROVIDERS: Emergency Provider Emergency Medicine; Visit Provider Emergency Medicine
DX: N93.8 Other specified abnormal uterine and vaginal bleeding (principal); R11.2 Nausea with vomiting, unspecified; R00.0 Tachycardia, unspecified; F17.210 Nicotine dependence, cigarettes, uncomplicated
CPT/HCPCS: 80048; 84703; 85025; 85610; 85730; 96360; 99282; J7030; A4216